=== PATIENT | female | born 1985 | race Caucasian/White ===

== ENCOUNTER 2019-12-22 18:41 | Outpatient (REF) | payer SELFPAY ==
[2019-12-22 20:26] LABS: HCT 39.6 % (36.0-46.0); HGB 13.4 g/dL (12.0-15.5); Mean Corp. HGB Concentration 33.8 g/dL (32.0-36.0); Mean Corpuscular Hemoglobin 31.1 pg (27.0-33.0); Mean Corpuscular Volume 91.9 fL (80-95); Mean Platelet Volume 10.2 fL (8.0-11.0); Platelet Count 244 x1000/uL (130-400); RBC 4.31 m/cumm (4.00-5.20); RBC Distribution Width 12.1 % (11.7-14.6); White Blood Cell Count 4.97 k/cumm (4.4-10.8)
[2019-12-22 20:27] LABS: TSH (W/Ref FT4) 3.22 uIU/mL (0.36-3.74)
[2019-12-24 17:02] LABS: FREE T4 1.22 ng/dL (0.76-1.46)
== END 2019-12-22 19:01 ==
LOC: NCHCN 18:41
PROVIDERS: PCP Family Medicine; Visit Provider Family Medicine
DX: E03.9 Hypothyroidism, unspecified (principal); R53.83 Other fatigue; Z83.3 Family history of diabetes mellitus
CPT/HCPCS: 85027; 83036; 84439; 84443

== ENCOUNTER 2021-05-04 17:13 | Outpatient (REF) | payer OTHER, SELFPAY ==
--- NOTE | 2021-05-04 16:45 | PAPFT_PTH ---
PATIENT: Dafne Liz LOC: [facility] U#:[id number] AGE/SX: 35/F ROOM: RE05/04/[address]: Fauzia Ochoa : 1985 BED: DIS: 05/04/2021 SPEC #: [id number] RECD: 05/04/21 18:28 STATUS: DARYA REQ #: [id number] SAMANTHA: 05/04/21 16:[address]: Fauzia Ochoa DEPT: [facility] Cytology RECD BY: Erin Rankin ENTERED: 05/04/21 18:28 SP TYPE: PAPFT OTHR DR: Sandra Vogel V Tissues: 1 - CX/ENDOCX FOR PAP SMEARS Procedures: PAP THIN PREP/[facility] Screening HPV DNA PROBE Comments: [id number]
== END 2021-05-04 17:14 | disposition home or self-care (01) ==
LOC: NCHCN 17:13
PROVIDERS: PCP Family Medicine; Visit Provider Nurse Practitioner Family
DX: E03.9 Hypothyroidism, unspecified (principal); Z12.4 Encounter for screening for malignant neoplasm of cervix; Z11.51 Encounter for screening for human papillomavirus (HPV); R87.610 Atypical squamous cells of undetermined significance on cytologic smear of cervix (ASC-US); R87.820 Cervical low risk human papillomavirus (HPV) DNA test positive
CPT/HCPCS: 88142; 84439; 87624

== ENCOUNTER 2021-06-20 16:14 | Outpatient (REF) | payer OTHER, SELFPAY ==
--- NOTE | 2021-06-20 15:45 | CER_PTH ---
PATIENT: Dafne Liz LOC: [facility] U#:[id number] AGE/SX: 35/F ROOM: RE06/20/[address]: Sarah Guzman MD : 1985 BED: DIS: 06/20/2021 SPEC #: [id number] RECD: 06/20/21 18:11 STATUS: DARYA REQ #: [id number] SAMANTHA: 06/20/21 15:[address]: Sarah Guzman DEPT: Surgical Specimen RECD BY: Erin Rankin ENTERED: 06/20/21 18:12 SP TYPE: CER OTHR DR: Sandra Vogel V Tissues: 1 - CERVICAL BIOPSY 2 - ENDOCERVICAL BX/CURRETTE Procedures: GROSS AND MICRO LEVEL 4 P16 IPEX Comments: [id number]
== END 2021-06-20 16:15 | disposition home or self-care (01) ==
LOC: LBN 16:14
PROVIDERS: PCP Family Medicine; Visit Provider Obstetrics & Gynecology
DX: R87.611 Atypical squamous cells cannot exclude high grade squamous intraepithelial lesion on cytologic smear of cervix (ASC-H) (principal)
CPT/HCPCS: 88305; 88342

== ENCOUNTER 2023-08-13 13:06 | Outpatient (REF) | payer OTHER, SELFPAY ==
--- NOTE | 2023-08-13 12:30 | PAPFT_PTH ---
PATIENT: Dafne Liz LOC: [facility]#:[id number] AGE/SX: 37/F ROOM: RE08/13/[address]: Sandra Vogel V : 1985 BED: DIS: 08/13/2023 SPEC #: [id number] RECD: 08/13/23 17:43 STATUS: DARYA RESrinivasan #: [id number] SAMANTHA: 08/13/23 12:[address]: Sandra Vogel V DEPT: [facility] Cytology RECD BY: Erin Rankin Tissues: 1 - CX/ENDOCX FOR PAP SMEARS Procedures: PAP THIN PREP/[facility] Screening HPV DNA PROBE Comments: [id number] (HPV 16 & 18/45)
[2023-08-13 16:29] LABS: FREE T4 0.73 ng/dL (0.76-1.46); TSH 10.62 uIU/Ml (0.36-3.74)
[2023-08-13 17:07] LABS: Hemoglobin A1C 5.1 % (<5.7)
[2023-08-13 17:10] LABS: Calculated LDL 98 mg/dL (<100); Cholesterol 170 mg/dL (<200); HDL Cholesterol 57 mg/dL (40-60); Triglyceride 76 mg/dL (<150)
== END 2023-08-13 13:07 | disposition home or self-care (01) ==
LOC: NCHCN 13:06
PROVIDERS: PCP Family Medicine; Visit Provider Family Medicine
DX: Z01.419 Encounter for gynecological examination (general) (routine) without abnormal findings (principal); Z12.4 Encounter for screening for malignant neoplasm of cervix
CPT/HCPCS: 80061; 88142; 83036; 84439; 84443; 87624

== ENCOUNTER 2024-04-07 16:27 | Outpatient (REF) | payer OTHER, SELFPAY ==
[2024-04-07 15:55] LABS: Hemoglobin A1C 5.3 % (<5.7)
[2024-04-07 16:19] LABS: TSH (W/Ref FT4) 4.18 uIU/mL (0.36-3.74)
[2024-04-07 16:39] LABS: FREE T4 1.15 ng/dL (0.76-1.46)
[2024-04-07 22:49] LABS: T3,Free 3.6 pg/mL (2.8-5.3)
== END 2024-04-07 16:28 | disposition home or self-care (01) ==
LOC: NCHCN 16:27
PROVIDERS: PCP Family Medicine; Visit Provider Family Medicine
DX: R63.5 Abnormal weight gain (principal)
CPT/HCPCS: 83036; 84439; 84443; 84481